=== PATIENT | female | born 1960 | race Caucasian/White ===

== ENCOUNTER → 2018-09-09 | Outpatient (CLI) | payer OTHER ==
--- NOTE | 2018-09-09 15:16 | REP ---
MRI brain without contrast: History: Memory changes, traumatic brain injury. No comparison brain imaging. Technique: Axial and sagittal imaging planes are utilized for T1 and T2-weighted scans. Sequences include spin-echo, fast spin echo, FLAIR, and diffusion weighted sequences. MRI findings: There is no evidence of bony calvarial lesion. Craniocervical junction and upper cervical cord are normal in appearance. There is no MR evidence of significant paranasal sinus disease. No intraorbital finding is seen. Diffusion weighted scans show no evidence to suggest acute ischemia. There is minimal motion artifact. There is no evidence of recent or remote intracranial hemorrhage. FLAIR and turbo spin echo T2-weighted scans show three or four foci of subcortical and periventricular white matter hyperintensity mostly in the right frontal lobe consistent with early small vessel changes. These are nonspecific. No other abnormal white matter finding. There is no evidence of infarct, mass, extra-axial fluid collection or midline shift. Impression: There are a few right frontal periventricular and subcortical white matter foci of T2 hyperintensity. These are most compatible with early small vessel changes. There are nonspecific. Otherwise negative. Electronically Signed by Michael Whitehead MD 09/09/2018 03:46 P
== END ==
LOC: M RAD 13:07
PROVIDERS: ATTEND Nurse Practitioner Family
DX: R41.3 Other amnesia (principal); S09.90XA Unspecified injury of head, initial encounter; Y93.9 Activity, unspecified; Y92.9 Unspecified place or not applicable

== ENCOUNTER → 2018-11-29 | Outpatient (CLI) | payer OTHER ==
[~2018-11-29] MED LIST: PROHANCE 279.3MG/ML 15ML VIAL (A9576) As Ordered ONE
--- NOTE | 2018-11-29 17:12 | REPVR ---
EXAM: MR Cervical Spine Without and With Contrast EXAM DATE/TIME: 11/29/2018 4:41 PM CLINICAL HISTORY: 57 years old, female; Pain and abnormal findings; Abnormal xray or scan of neck and cervical spine; Cervicalgia; Additional info: Neck pain TECHNIQUE: Imaging protocol: Multiplanar magnetic resonance images of the cervical spine without and with intravenous contrast. Contrast material: PROHANCE; Contrast volume: 15.6 ml; Contrast route: IV; COMPARISON: CT C-SPINE - OUTSIDE PRIOR 07/20/2018 3:02 PM FINDINGS: Cervical vertebral body heights are intact. The dens is intact. No abnormal marrow signal. No cord compression, expansion, or abnormal cord signal. Visualized structures of the posterior fossa are unremarkable. No areas of abnormal enhancement. Soft tissues are unremarkable. C2-C3: No significant canal or foraminal narrowing. C3-C4: No significant canal or foraminal narrowing. C4-C5: No significant canal or foraminal narrowing. C5-C6: Minimal posterior disc protrusion without significant canal narrowing. Mild bilateral foraminal narrowing. C6-C7: Posterior disc protrusion concerning for mild canal narrowing and mild bilateral foraminal narrowing. C7-T1: No significant canal or foraminal narrowing. IMPRESSION: No acute findings in the cervical spine. No evidence of severe canal or foraminal narrowing. Electronically signed by: [place] 11/29/2018 17:12:29 PM
== END ==
LOC: M RAD 15:18
PROVIDERS: ATTEND Nurse Practitioner Family
DX: M54.2 Cervicalgia (principal)
CPT/HCPCS: 72156; A9576

== ENCOUNTER → 2019-08-04 | Outpatient (REF) | payer OTHER | LOC: M SFHCCLAY 11:42 | PROVIDERS: ATTEND Family Medicine | DX: R30.0 Dysuria (principal) ==

== ENCOUNTER → 2019-09-07 | Outpatient (REF) | payer OTHER ==
[2019-09-08 11:55] LABS: FOLATE 17.8 NG/ML
[2019-09-08 12:07] LABS: HEMOGLOBIN A1c 5.5 %
[2019-09-15 08:09] LABS: BENZOYLECGONINE (GC/MS) 950 ng/mL (Cutoff=150); COCAINE + METABOLITE Positive (Cutoff=300); CODEINE, URINE Negative (Cutoff=100); CREATININE, URINE 161.1 mg/dL (20.0-300.0); HYDROCODONE CONFIRM, URINE 2347 ng/mL (Cutoff=100); HYDROCODONE, URINE Positive (.); HYDROMORPHONE CONFIRM, URINE 342 ng/mL (Cutoff=100); HYDROMORPHONE, URINE Positive (.); MORPHINE, URINE Negative (Cutoff=100); OPIATES, URINE Positive ng/mL (Cutoff=300)
== END ==
LOC: M SFHCCLAY 15:18
PROVIDERS: ATTEND Family Medicine
DX: R20.8 Other disturbances of skin sensation (principal); R20.2 Paresthesia of skin; R20.0 Anesthesia of skin

== ENCOUNTER → 2020-01-06 | Outpatient (REF) | payer OTHER ==
[2020-01-10 00:06] LABS: CREATININE, URINE 171.8 mg/dL (20.0-300.0)
== END ==
LOC: M SFHCCLAY 10:39
PROVIDERS: ATTEND Physician Assistant
DX: M25.572 Pain in left ankle and joints of left foot (principal)

== ENCOUNTER → 2020-02-03 | Outpatient (REF) | payer OTHER ==
[2020-02-03 16:56] LABS: ALT/SGPT 31 U/L (12-78); BILIRUBIN,TOTAL 0.4 MG/DL (0.2-1.0); BLOOD UREA NITROGEN 8 MG/DL (7-18); CALCIUM LEVEL 9.2 MG/DL (8.5-10.1); CARBON DIOXIDE LEVEL 33 MEQ/L (21-32); CHLORIDE LEVEL 107 MEQ/L (98-107); CREATININE FOR GFR 0.74 MG/DL (0.55-1.30); GLOMERULAR FILTRATION RATE > 60.0 (>51); GLUCOSE, FASTING 93 MG/DL (70-100); POTASSIUM SERUM 4.3 MEQ/L (3.5-5.1); SODIUM LEVEL 142 MEQ/L (136-145)
[2020-02-03 17:08] LABS: HEPATITIS B SURFACE ANTIGEN NEGATIVE (NEGATIVE)
[2020-02-03 17:34] LABS: HEPATITIS C VIRUS ABY INDEX < 0.0 INDEX (<0.8)
[2020-02-03 17:35] LABS: HEPATITIS B CORE ANTIBODY IGM NEGATIVE (NEGATIVE)
[2020-02-03 17:36] LABS: HEPATITIS A ANTIBODY IGM NEGATIVE (NEGATIVE); HIV 1&2 SCREEN CENTAUR NEGATIVE (NEGATIVE)
[2020-02-10 15:13] LABS: CODEINE, URINE Negative (Cutoff=100); CREATININE, URINE 164.9 mg/dL (20.0-300.0); HYDROCODONE CONFIRM, URINE 1314 ng/mL (Cutoff=100); HYDROCODONE, URINE Positive (.); HYDROMORPHONE CONFIRM, URINE 464 ng/mL (Cutoff=100); HYDROMORPHONE, URINE Positive (.); MORPHINE, URINE Negative (Cutoff=100); OPIATES, URINE Positive ng/mL (Cutoff=300)
== END ==
LOC: M SFHCCLAY 12:13
PROVIDERS: ATTEND Family Medicine
DX: Z79.891 Long term (current) use of opiate analgesic (principal); W46.0XXA Contact with hypodermic needle, initial encounter

== ENCOUNTER 2024-05-22 06:40 | Emergency (ER) | payer OTHER ==
[~2024-05-22] VITALS: Ht 180.3 cm; Wt 70.9 kg
[2024-05-22 07:16] LABS: BASO # 0.1 10^3/uL (0.0-0.2); EOS # 0.1 10^3/uL (0.0-0.5); EOS % 0.6 % (0.0-3.0); HEMATOCRIT 42.3 % (36.0-47.0); LYMPH # 2.6 10^3/uL (1.5-5.0); LYMPH % 21.5 % (24.0-44.0); MEAN CORPUSCULAR HGB CONC 33.1 g/dl (32.0-36.5); MEAN CORPUSCULAR VOLUME 93.8 fl (80.0-96.0); MONO # 0.8 10^3/uL (0.0-0.8); MONO % 6.7 % (2.0-8.0); NEUTROPHILS # 8.5 10^3/uL (1.5-8.5); NEUTROPHILS % 69.7 % (36.0-66.0); PLATELET COUNT, AUTOMATED 248 10^3/uL (150-450); RED BLOOD COUNT 4.51 10^6/uL (4.00-5.40); WHITE BLOOD COUNT 12.1 10^3/uL (4.0-10.0)
[2024-05-22 07:38] LABS: CK-MB VALUE MASS 2.2 NG/ML (<3.6)
[2024-05-22 07:40] LABS: ALBUMIN 3.8 G/DL (3.2-5.2); ALKALINE PHOSPHATASE 54 U/L (35-104); ALT/SGPT 20 U/L (7.0-40); AST/SGOT 20 U/L (<34); BILIRUBIN,TOTAL 0.4 MG/DL (0.3-1.2); BLOOD UREA NITROGEN 14 MG/DL (9-23); CALCIUM LEVEL 9.1 MG/DL (8.3-10.6); CARBON DIOXIDE LEVEL 29 MMOL/L (20-31); CHLORIDE LEVEL 106 MMOL/L (98-107); CPK CREATINE PHOSPHOKINASE 127 U/L (34-145); GLOMERULAR FILTRATION RATE > 60.0 (>45); GLUCOSE, FASTING 112 MG/DL (74-106); MB/CK RELATIVE INDEX 1.73 (< OR =4); POTASSIUM SERUM 4.3 MMOL/L (3.5-5.1); SODIUM LEVEL 143 MMOL/L (136-145); TOTAL PROTEIN 6.7 G/DL (5.7-8.2)
[2024-05-22] MEDS ORDERED: HYDROMORPHONE HCL 0.5 MG/ 0.5 ML SYRINGE IV PRN (07:55)
[2024-05-22] MEDS: PERCOCET 5MG/325MG TAB PO ONE (08:26)
[2024-05-22 10:03] VITALS: TEMP 97.1; O2SAT 95
[2024-05-22 10:06] VITALS: BP 140/72
== END 2024-05-22 10:12 | disposition home or self-care (01) ==
LOC: M ED 06:40 → EDBD 06:40 → M ED 10:12
DX: S42.022A Displaced fracture of shaft of left clavicle, initial encounter for closed fracture (principal); S43.102A Unspecified dislocation of left acromioclavicular joint, initial encounter; W01.198A Fall on same level from slipping, tripping and stumbling with subsequent striking against other object, initial encounter; Y92.009 Unspecified place in unspecified non-institutional (private) residence as the place of occurrence of the external cause; Y93.9 Activity, unspecified; Y99.9 Unspecified external cause status; Z88.0 Allergy status to penicillin; Z88.1 Allergy status to other antibiotic agents; Z88.5 Allergy status to narcotic agent; Z88.6 Allergy status to analgesic agent; Z88.8 Allergy status to other drugs, medicaments and biological substances